=== PATIENT | male | born 1975 | race African-American/Black ===

== ENCOUNTER 2020-07-05 12:02 | Emergency (ER) | payer SELFPAY ==
[~2020-07-05] VITALS: Ht 175.3 cm; Wt 63.1 kg
[~2020-07-05 12:02] MED LIST: DOCU-109 PO; OXYC1TAB15 PO; PANT40TA77 PO
[2020-07-05 12:48] LABS: BILIRUBIN,URINE NEGATIVE (NEG); CLARITY,URINE CLEAR; COLOR,URINE YELLOW; NITRITE,URINE NEGATIVE (NEG); PH,URINE 8.5 (<5.0-8.0); PROTEIN,URINE 100 mg/dL (NEG-TRACE); UROBILINOGEN,URINE 0.2 mg/dL (0.2 mg/dL)
--- NOTE | 2020-07-05 12:49 | PHYS DOC ---
Past Medical History Past Medical History: Other Additional Past Medical Histor: ulcers Past Surgical History: Other Additional Past Surgical Histo: ulcers Smoking Status: Current Every Day Smoker Additional Information: 0.25 PPD Alcohol Use: None Drug Use: None General Adult EDM: Chief Complaint: ABDOMINAL PAIN HPI: HPI: Patient is a 45 year old male presented to ER with 3-week history of left lower abdominal pain. Patient denies any nausea vomiting. Patient denies any dark stool. Patient has history of abdominal pain in the past, had perforated viscus, had laparotomy done. Patient denies any cough or fever. Patient denies being exposed to anybody who tested positive for COVID-19. Patient also complains of left side scrotal pain and swelling for 2 weeks. NO penile discharge. Review of Systems: Review of Systems: Constitutional: Denies fever or chills. [] Eyes: Denies change in visual acuity. [] HENT: Denies nasal congestion or sore throat. [] Respiratory: Denies cough or shortness of breath. [] Cardiovascular: Denies chest pain or edema. [] GI: Positive for abdominal pain, no nausea vomiting, no diarrhea. : Denies dysuria. [] Musculoskeletal: Denies back pain or joint pain. [] Integument: Denies rash. [] Neurologic: Denies headache, focal weakness or sensory changes. [] Endocrine: Denies polyuria or polydipsia. [] Lymphatic: Denies swollen glands. [] Psychiatric: Denies depression or anxiety. [] Heart Score: Risk Factors: Risk Factors: DM, Current or recent (<one month) smoker, HTN, HLP, family history of CAD, obesity. Risk Scores: Score 0 - 3: 2.5% MACE over next 6 weeks - Discharge Home Score 4 - 6: 20.3% MACE over next 6 weeks - Admit for Clinical Observation Score 7 - 10: 72.7% MACE over next 6 weeks - Early Invasive Strategies Allergies: Allergies: Allergies Coded Allergies Type Severity Reaction Last Updated Verified No Known Drug Allergies 02/20/14 No Physical Exam: PE: Constitutional: Well developed, well nourished, no acute distress, non-toxic appearance. [] HENT: Normocephalic, atraumatic, bilateral external ears normal, oropharynx moist, no oral exudates, nose normal. [] Eyes: PERRLA, EOMI, conjunctiva normal, no discharge. [] Neck: Normal range of motion, no tenderness, supple, no stridor. [] Cardiovascular:Heart rate regular rhythm, no murmur [] Lungs & Thorax: Bilateral breath sounds clear to auscultation [] Abdomen: Bowel sounds normal, soft, there is tenderness to palpation at left lower quadrant, no rebound, no guarding, no pulsatile mass : LEFT SIDE TESTICLE IS SWOLLEN AND TENDER, NO RASH. Skin: Warm, dry, no erythema, no rash. [] Back: No tenderness, no CVA tenderness. [] Extremities: No tenderness, no cyanosis, no clubbing, ROM intact, no edema. [] Neurologic: Alert and oriented X 3, normal motor function, normal sensory function, no focal deficits noted. [] Psychologic: Affect normal, judgement normal, mood normal. [] Current Patient Data: Vital Signs: Vital Signs Date Time Temp Pulse Resp B/P (MAP) Pulse Ox O2 Delivery O2 Flow Rate FiO2 07/05/20 12:09 97.8 90 20 134/68 (90) 100 Room Air 97.8 EKG: EKG: [] Radiology/Procedures: Radiology/Procedures: [][facility] [address] [place], [place] [id number] IMAGING REPORT Signed PATIENT: ASHLEY DAVISON ACCOUNT: [id number] : 1975 LOCATION: ER AGE: 45 SEX: M EXAM STATUS: REG ER ORD. PHYSICIAN: CANDIDO PATEL DO REASON: LLQ ABDOMINAL PAIN PROCEDURE: CT ABD PELV W/ IV CONTRST ONLY Examination: CT ABD PELV W/ IV CONTRST ONLY History: Reason: LLQ ABDOMINAL PAIN / Spl. Instructions: OMNI 300 INJ 75 MLS / History: Comparison/Correlation: 05/10/2014 CT abdomen and pelvis with contrast Findings: Axial images of the abdomen and pelvis were obtained following IV contrast. Sagittal and coronal reformatted images were provided. Visualized lung bases are clear. Liver, spleen, and adrenal glands are normal. Pancreas is unremarkable. Gallbladder fossa is unremarkable. Kidneys are normal. Minimal mesenteric fat is noted. Moderate quantity of stool involving the colon is present. No inflammatory findings about the cecum noted but evaluation may be limited due to minimal mesenteric fat. Appendix is partially delineated and unremarkable although evaluation is limited. Fecalalization of small bowel distally is seen. No bowel obstruction. No ascites. No large abdominal or pelvic lymph nodes. No extraluminal gas. Urinary bladder is unremarkable. Bony structures are unremarkable. Impression: No inflammatory process is noted although evaluation may be limited due to minimal mesenteric fat. Fecalalization of small bowel which may represent stasis is present. No significant findings of obstruction. PQRS Compliance Statement: One or more of the following individualized dose reduction techniques were utilized for this examination: 1. Automated exposure control 2. Adjustment of the mA and/or kV according to patient size 3. Use of iterative reconstruction technique Electronically signed by: Anders Roberto MD (07/05/2020 2:05 PM) [id number] DICTATED and SIGNED BY: ANDERS ROBERTO MD DATE: 07/05/[address] [facility] [address] [place] [address] IMAGING REPORT Signed PATIENT: ASHLEY DAVISON ACCOUNT: [id number] : 1975 LOCATION: ER AGE: 45 SEX: M EXAM STATUS: REG ER ORD. PHYSICIAN: CANDIDO PATEL DO REASON: left side scrotal pain and swelling for 2-3 weeks PROCEDURE: TESTICULAR/SCROTUM Testicular ultrasound dated 07/05/2020. No comparison available. Clinical data indication: Pain and swelling for 2 to 3 weeks. FINDINGS: Right testicle measures 4.6 x 2.6 x 1.8 cm. Left testicle measures 3.7 x 2.8 x 1.8 cm. No evidence of testicular mass. There is normal color Doppler flow and waveforms to both testicles. Heterogeneous zone of thickening involving the epididymitis on the left inferior to the left testicle. This measures up to 3.5 cm in size and shows some and increased color flow. There is a small cyst at the right epididymal head. The right epididymis is otherwise unremarkable. No significant hydrocele or varicocele. IMPRESSION: 1. Normal sonographic appearance of the testicles. 2. Heterogeneous thickening and increased color flow involving the epididymal body and tail is indeterminate. This most likely represents acute or chronic epididymitis. An extratesticular mass would be considered less likely. Recommend clinical correlation and follow-up imaging if indicated. Electronically signed by: Hiren Fletcher MD (07/05/2020 3:26 PM) [id number] DICTATED and SIGNED BY: HIREN FLETCHER MD DATE: 07/05/20 1526 Course & Med Decision Making: Course & Med Decision Making Pertinent Labs and Imaging studies reviewed. (See chart for details) [] Sergo Disclaimer: Sergo Disclaimer: This electronic medical record was generated, in whole or in part, using a voice recognition dictation system. Departure Departure Impression: Primary Impression: Abdominal pain Additional Impressions: Constipation Epididymitis, left Disposition: 01 DC HOME SELF CARE/HOMELESS Condition: STABLE Referrals: NO PCP (PCP) please follow up with your doctor next week Patient Instructions: Abdominal Pain, Constipation, Adult, Epididymitis Additional Instructions: Thank you for visiting our Emergency Department. We appreciate you trusting us with your care. If any additional problems come up don't hesitate to return to visit us. Please follow up with your primary care provider so they can plan additional care if needed and know about the problem that you had. If symptoms worsen come back to the Emergency Department. Any concerning symptoms that start such as chest pain, shortness of air, weakness or numbness on one side of the body, running high fevers or any other concerning symptoms return to the ER. Scripts Doxycycline Hyclate (DOXYCYCLINE HYCLATE) 100 Mg Capsule 1 CAP PO BID for 14 Days, #28 CAP Prov: CANDIDO PATEL DO 07/05/20 CANDIDO PATEL DO Jul 05, 2020 12:49
[2020-07-05 12:58] LABS: BASO # 0.1 x10^3/uL (0.0-0.2); BASO % 1 % (0-3); EOS # 0.1 x10^3/uL (0.0-0.7); EOS % 1 % (0-3); HEMATOCRIT 39.3 % (39.0-53.0); HEMOGLOBIN 13.4 g/dL (13.0-17.5); LYMPH # 2.6 x10^3/uL (1.0-4.8); LYMPH % 26 % (24-48); MEAN CORPUSCULAR HEMOGLOBIN 30 pg (25-35); MEAN CORPUSCULAR HGB CONC 34 g/dL (31-37); MEAN CORPUSCULAR VOLUME 89 fL (79-100); MONO # 0.7 x10^3/uL (0.0-1.1); MONO % 7 % (0-9); NEUT # 6.6 x10^3/uL (1.8-7.7); NEUT % 65 % (31-73); PLATELET COUNT 478 x10^3/uL (140-400); RED BLOOD COUNT 4.44 x10^6/uL (4.30-5.70); RED CELL DISTRIBUTION WIDTH 13.6 % (11.5-14.5); WHITE BLOOD COUNT 10.1 x10^3/uL (4.0-11.0)
[2020-07-05] MEDS ORDERED: MORPHINE SULFATE 4 MG/ML VIAL. IV ONE (13:00)
[2020-07-05] MEDS ORDERED: ONDANSETRON PF 4 MG/2 ML VIAL. IVP ONE (13:00)
[2020-07-05] MEDS ORDERED: IV NORMAL SALINE 1000ML BAG 1,000 ML IV ONE (13:00)
[2020-07-05 13:05] LABS: AMORPHOUS SEDIMENT,UR PRESENT /HPF; BACTERIA,URINE MODERATE /HPF (0-FEW); RBC,URINE 0 /HPF (0-2); WBC,URINE 20-40 /HPF (0-4)
[2020-07-05 13:07] LABS: CALCIUM 9.1 mg/dL (8.5-10.1); CREATININE 0.9 mg/dL (0.7-1.3); GFR 109.9; POTASSIUM 3.6 mmol/L (3.5-5.1)
[2020-07-05 13:13] LABS: ALBUMIN 3.2 g/dL (3.4-5.0); ALBUMIN/GLOBULIN RATIO 0.7 (1.0-1.7); MAGNESIUM 2.2 mg/dL (1.8-2.4); TOTAL BILIRUBIN 0.2 mg/dL (0.2-1.0)
[2020-07-05] MEDS ORDERED: CONTRAST GIVEN. MC PRN (13:30)
[2020-07-05] MEDS ORDERED: IOHEXOL 300 MG/ML 100ML VIAL. IV ONE (13:30)
--- NOTE | 2020-07-05 14:08 | RAD ---
Examination: CT ABD PELV W/ IV CONTRST ONLY History: Reason: LLQ ABDOMINAL PAIN / Spl. Instructions: OMNI 300 INJ 75 MLS / History: Comparison/Correlation: 05/10/2014 CT abdomen and pelvis with contrast Findings: Axial images of the abdomen and pelvis were obtained following IV contrast. Sagittal and coronal reformatted images were provided. Visualized lung bases are clear. Liver, spleen, and adrenal glands are normal. Pancreas is unremarkable. Gallbladder fossa is unremarkable. Kidneys are normal. Minimal mesenteric fat is noted. Moderate quantity of stool involving the colon is present. No inflammatory findings about the cecum noted but evaluation may be limited due to minimal mesenteric fat. Appendix is partially delineated and unremarkable although evaluation is limited. Fecalalization of small bowel distally is seen. No bowel obstruction. No ascites. No large abdominal or pelvic lymph nodes. No extraluminal gas. Urinary bladder is unremarkable. Bony structures are unremarkable. Impression: No inflammatory process is noted although evaluation may be limited due to minimal mesenteric fat. Fecalalization of small bowel which may represent stasis is present. No significant findings of obstruction. PQRS Compliance Statement: One or more of the following individualized dose reduction techniques were utilized for this examination: 1. Automated exposure control 2. Adjustment of the mA and/or kV according to patient size 3. Use of iterative reconstruction technique Electronically signed by: Anders Raygoza MD (07/05/2020 2:05 PM) [id number]
--- NOTE | 2020-07-05 15:29 | RAD ---
Testicular ultrasound dated 07/05/2020. No comparison available. Clinical data indication: Pain and swelling for 2 to 3 weeks. FINDINGS: Right testicle measures 4.6 x 2.6 x 1.8 cm. Left testicle measures 3.7 x 2.8 x 1.8 cm. No evidence of testicular mass. There is normal color Doppler flow and waveforms to both testicles. Heterogeneous zone of thickening involving the epididymitis on the left inferior to the left testicle. This measures up to 3.5 cm in size and shows some and increased color flow. There is a small cyst at the right epididymal head. The right epididymis is otherwise unremarkable. No significant hydrocele or varicocele. IMPRESSION: 1. Normal sonographic appearance of the testicles. 2. Heterogeneous thickening and increased color flow involving the epididymal body and tail is indeterminate. This most likely represents acute or chronic epididymitis. An extratesticular mass would be considered less likely. Recommend clinical correlation and follow-up imaging if indicated. Electronically signed by: Hiren Fletcher MD (07/05/2020 3:26 PM) [id number]
[2020-07-05] MEDS ORDERED: DOXY100C2 PO (15:44)
[2020-07-05 15:48] VITALS: BP 133/91
[2020-07-05] MEDS ORDERED: cefTRIAXone IV Push 1 GM VIAL. IVP ONE (16:00)
== END 2020-07-05 16:06 | disposition home or self-care (01) ==
LOC: ER 12:02
DX: K59.00 Constipation, unspecified (principal); N45.1 Epididymitis; F17.200 Nicotine dependence, unspecified, uncomplicated
CPT/HCPCS: 36415; 74177; 76870; 80053; 81001; 83690; 83735; 85025; 87086; 96361; 96374; 96375; 99285; J0696; J2270; J2405; J7030; Q9967